=== PATIENT | female | born 1955 | race Caucasian/White ===

== ENCOUNTER 2023-07-09 11:03 | Day surgery (SDC) | payer OTHER ==
[2023-07-02 16:02] VITALS: BMI 21.9
[2023-07-09 11:33] VITALS: RESP 18
[2023-07-09 12:45] VITALS: TEMP 97.1
[2023-07-09 12:46] VITALS: PULSE 68
[2023-07-09 13:51] VITALS: BP 107/64
== END 2023-07-09 13:00 | disposition home or self-care (01) ==
LOC: FASU-ENDO 11:03
PROVIDERS: ATTEND Internal Medicine Gastroenterology
PROC: 0DBL8ZX Excision of Transverse Colon, Via Natural or Artificial Opening Endoscopic, Diagnostic (ICD-10-PCS; principal; 2023-07-09 12:05)
DX: Z12.11 Encounter for screening for malignant neoplasm of colon (principal); D12.3 Benign neoplasm of transverse colon; K57.30 Diverticulosis of large intestine without perforation or abscess without bleeding; K64.1 Second degree hemorrhoids; K64.4 Residual hemorrhoidal skin tags; Z86.010 Personal history of colon polyps
CPT/HCPCS: 88305-TC